=== PATIENT | male | born 1955 | race Caucasian/White ===

== ENCOUNTER 2020-04-20 16:29 | Emergency (ER) | payer MEDICAID, SELFPAY ==
[~2020-04-20] VITALS: Ht 172.7 cm; Wt 95.3 kg
[2020-04-20 18:55] VITALS: Ht 172.7 cm; Wt 95.3 kg
[2020-04-20 19:26] VITALS: BP 125/62
== END 2020-04-20 19:26 | disposition home or self-care (01) ==
LOC: ED 16:29
DX: U07.1 COVID-19 (principal); R19.7 Diarrhea, unspecified
CPT/HCPCS: Q0092; U0003-CS

== ENCOUNTER 2020-04-25 02:00 | Emergency (ER) | payer MEDICAID, SELFPAY ==
[~2020-04-25] VITALS: Ht 167.6 cm; Wt 74.8 kg
[2020-04-25 02:04] VITALS: Ht 167.6 cm; Wt 74.8 kg
[2020-04-25 03:36] VITALS: BP 121/65
== END 2020-04-25 03:36 | disposition home or self-care (01) ==
LOC: ED 02:00
DX: U07.1 COVID-19 (principal); I10 Essential (primary) hypertension